=== PATIENT | male | born 1970 | race African-American/Black ===

== ENCOUNTER 2022-12-16 16:27 | Emergency (ER) | payer OTHER ==
[~2022-12-16] VITALS: Ht 185.4 cm; Wt 81.8 kg
[2022-12-16 18:04] VITALS: BP 128/96
[2022-12-16] MEDS ORDERED: BACL10TA PO (18:55)
[2022-12-16] MEDS ORDERED: NAPR-1025 PO (18:58)
== END 2022-12-16 19:22 | disposition home or self-care (01) ==
LOC: EMS 16:29
DX: M54.50 Low back pain, unspecified (principal)
CPT/HCPCS: 99283; Z7502